=== PATIENT | female | born 1985 | race Caucasian/White ===

== ENCOUNTER 2016-06-26 17:01 | Observation (INO) | payer SELFPAY ==
[~2016-06-26] VITALS: Ht 444.5 cm; Wt 70.8 kg
== END 2016-07-02 17:30 | disposition home or self-care (01) ==
LOC: L&D 07-02 16:18
PROVIDERS: ADMIT Obstetrics & Gynecology; ATTEND Obstetrics & Gynecology
DX: O26.893 Other specified pregnancy related conditions, third trimester (principal); R00.1 Bradycardia, unspecified; Z3A.39 39 weeks gestation of pregnancy
CPT/HCPCS: 76815; 76818; G0378

== ENCOUNTER 2016-07-12 15:51 | Observation (INO) | payer SELFPAY ==
[~2016-07-12] VITALS: Ht 170.2 cm; Wt 70.8 kg
[2016-07-14] MEDS ORDERED: PREN-88 PO (13:00)
[2016-07-14] MEDS ORDERED: LEVO75TA7 PO (22:46)
== END 2016-07-14 13:05 | disposition home or self-care (01) ==
LOC: EDBD → L&D 07-14 10:28
PROVIDERS: ADMIT Obstetrics & Gynecology; ATTEND Obstetrics & Gynecology
DX: O62.9 Abnormality of forces of labor, unspecified (principal); O48.0 Post-term pregnancy; Z3A.40 40 weeks gestation of pregnancy
CPT/HCPCS: 76815; 76818; G0378; J7120

== ENCOUNTER 2016-07-14 21:36 | Inpatient (IN) | payer SELFPAY ==
[~2016-07-14] VITALS: Ht 175 cm; Wt 70.3 kg
[~2016-07-14 21:36] MED LIST: PREN-88 PO
[2016-07-14] MEDS ORDERED: DEXT 5%/LR + PITOCIN 20UNITS/L 1,000 ML IV SCH (22:39)
[2016-07-14] MEDS ORDERED: METHYLERGONOVINE MALEATE 0.2 MG/ML IM PRN (22:45)
[2016-07-14] MEDS ORDERED: CARBOPROST TROMETHAMINE 250 MCG/ML AMPUL IM PRN (22:45)
[2016-07-14] MEDS ORDERED: BUTORPHANOL TARTRATE 2 MG/ML VIAL IV PRN (22:45)
[2016-07-14] MEDS ORDERED: MISOPROSTOL 100MCG TABLET VG SCH (22:45)
[2016-07-14] MEDS ORDERED: LIDOCAINE HCL 1% 20ML VIAL (Pyxis) INJ INFIL SCH (22:45)
[2016-07-14] MEDS ORDERED: NALOXONE HCL 0.4 MG/ML 1ML VIAL IM PRN (22:45)
[2016-07-14] MEDS ORDERED: LEVO75TA7 PO (22:46)
[2016-07-14] MEDS ORDERED: LACTATED RINGERS 1,000 ML IV SCH (23:00)
[2016-07-14] MEDS ORDERED: AMPICILLIN 2,000 MG in SODIUM CHLORIDE 0.9% 100 ML IV NR (23:15)
[2016-07-15] VITALS (7 sets, daily range): BP systolic 95–115; BP diastolic 62–78
[2016-07-15] LABS: CLARITY URINE CLEAR (CLEAR); COLOR URINE YELLOW (YELLOW); GLUCOSE URINE 2+ (NEGATIVE); KETONES URINE NEGATIVE (NEGATIVE); LEUKOCYTE ESTERASE URINE NEGATIVE (NEGATIVE); NITRITE URINE NEGATIVE (NEGATIVE); OCCULT BLOOD URINE NEGATIVE (NEGATIVE); PROTEIN URINE NEGATIVE (NEGATIVE); SPECIFIC GRAVITY URINE 1.015 (1.005-1.030)
[2016-07-15 00:01] LABS: BACTERIA URINE 2+; CALCIUM PHOSPHATE CRYSTALS UR NONE SEEN /lpf; RBC URINE NONE SEEN /hpf (0-2); SQUAMOUS EPITHELIAL CELL URINE 1+ /lpf (RARE/1+); WAXY CASTS URINE NONE SEEN /lpf; WBC URINE NONE SEEN /hpf (0-2); YEAST URINE NONE SEEN
[2016-07-15 00:07] LABS: BASOPHILS % 0.2 % (0.0-2.0); EOSINOPHILS % 1.5 % (0.0-5.0); HEMATOCRIT. 34.3 % (36.0-48.0); HEMOGLOBIN. 11.7 g/dL (12.0-16.0); MEAN CORPUSCULAR HEMOGLOBIN 28.1 pg (28.0-32.0); MEAN CORPUSCULAR HGB CONC 33.9 g/dL (31.0-37.0); MEAN CORPUSCULAR VOLUME 82.8 fL (81.0-99.0); MONOCYTES % 8.5 % (2.0-8.0); NEUTROPHILS % 64.8 % (40.0-76.0); PLATELET 216 x1000/uL (130-400); RED BLOOD CELL COUNT 4.15 mill/uL (4.2-5.4); RED CELL DISTRIBUTION WIDTH 15.9 % (11.6-14.6); WHITE BLOOD COUNT 8.2 x1000/uL (4.5-11.0)
[2016-07-15 00:10] LABS: PARTIAL THROMBOPLASTIN TIME 28.7 sec (24.0-34.0); PROTHROMBIN TIME 10.5 sec
[2016-07-15 00:20] LABS: *AMPHETAMINES SCREEN URINE NEGATIVE (NEGATIVE); *BARBITURATES SCREEN URINE NEGATIVE (NEGATIVE); *BENZODIAZEPINES SCREEN URINE NEGATIVE (NEGATIVE); *COCAINE SCREEN URINE NEGATIVE (NEGATIVE); CANNABINOID URINE SCREEN NEGATIVE (NEGATIVE); ECSTASY MDMA SCREEN URINE NEGATIVE (NEGATIVE); METHADONE URINE SCREEN NEGATIVE (NEGATIVE); OPIATES URINE SCREEN NEGATIVE (NEGATIVE); PHENCYCLIDINE URINE SCREEN NEGATIVE (NEGATIVE)
[2016-07-15 01:17] LABS: ALANINE AMINOTRANSFERASE 15 IU/L (13-61); ALBUMIN 2.6 g/dL (3.4-5.0); ANION GAP 15; CALCIUM 8.6 mg/dL (8.5-10.1); CARBON DIOXIDE 22 mEq/L (21-32); CHLORIDE 109 mEq/L (98-107); INDEX HEMOLYSI 1 (1-3); INDEX ICTERIC 1 (1-4); INDEX LIPEMIC 1 (1-3); UREA NITROGEN BLOOD 8 mg/dL (7-21); eGFR > 60 mL/min (>60)
[2016-07-15] MEDS ORDERED: DEXT 5%/LR + PITOCIN 20UNITS/L 1,000 ML IV SCH (03:27)
[2016-07-15] MEDS ORDERED: IBUPROFEN 800MG TABLET PO PRN (03:30)
[2016-07-15] MEDS ORDERED: RHO(D) IMMUNE GLOBULIN 300 MCG/SYR IM PRN (03:30)
[2016-07-15] MEDS ORDERED: BENZOCAINE/LANOLIN/ALOE VERA SPRAY TOP PRN (03:30)
[2016-07-15] MEDS ORDERED: ACETAMINOPHEN WITH CODEINE 300/30MG TABLET PO PRN (03:30)
[2016-07-15] MEDS ORDERED: IBUPROFEN 400MG TABLET PO PRN (03:30)
[2016-07-15 04:17] LABS: HEPATITIS B SURFACE ANTIGEN NEGATIVE
[2016-07-15] MEDS ORDERED: AMPICILLIN 1,000 MG in SODIUM CHLORIDE 0.9% 50 ML IV SCH (05:00)
[2016-07-15 07:21] LABS: BASOPHILS % 0.3 % (0.0-2.0); EOSINOPHILS % 0.4 % (0.0-5.0); HEMATOCRIT. 32.7 % (36.0-48.0); LYMPHOCYTES % 11.7 % (20.0-50.0); MEAN CORPUSCULAR HEMOGLOBIN 27.9 pg (28.0-32.0); MEAN CORPUSCULAR HGB CONC 33.6 g/dL (31.0-37.0); MEAN CORPUSCULAR VOLUME 83.1 fL (81.0-99.0); MEAN PLATELET VOLUME 7.8 fl (7.4-10.4); MONOCYTES % 5.3 % (2.0-8.0); NEUTROPHILS % 82.3 % (40.0-76.0); PLATELET 212 x1000/uL (130-400); RED BLOOD CELL COUNT 3.93 mill/uL (4.2-5.4); RED CELL DISTRIBUTION WIDTH 15.9 % (11.6-14.6); WHITE BLOOD COUNT 13.5 x1000/uL (4.5-11.0)
[2016-07-15 07:25] LABS: RUBELLA IGG < 0.2 IU/mL (4.99-10)
[2016-07-15] MEDS: LEVOTHYROXINE SODIUM 75MCG TABLET PO SCH (08:03)
[2016-07-16] MEDS: LEVOTHYROXINE SODIUM 75MCG TABLET PO SCH (07:00)
[2016-07-16 08:44] VITALS: BP 105/72
== END 2016-07-16 11:30 | disposition home or self-care (01) | DRG 560 ==
LOC: L&D 22:27 → OBSVTOIN 22:27 → 7EST PP/OB 07-15 06:27
PROVIDERS: ADMIT Obstetrics & Gynecology; ATTEND Obstetrics & Gynecology
PROC: 0HQ9XZZ Repair Perineum Skin, External Approach (ICD-10-PCS; 2016-07-14)
PROC: 10E0XZZ Delivery of Products of Conception, External Approach (ICD-10-PCS; principal; 2016-07-14 04:00)
DX: O76 Abnormality in fetal heart rate and rhythm complicating labor and delivery (principal); E03.9 Hypothyroidism, unspecified; O99.284 Endocrine, nutritional and metabolic diseases complicating childbirth; O99.824 Streptococcus B carrier state complicating childbirth; O70.0 First degree perineal laceration during delivery; O99.02 Anemia complicating childbirth; D64.9 Anemia, unspecified; O69.81X0 Labor and delivery complicated by cord around neck, without compression, not applicable or unspecified; Z37.0 Single live birth; Z3A.41 41 weeks gestation of pregnancy
CPT/HCPCS: 36415; 80053; 80305; 81001; 81003; 85025; 85610; 85730; 86592; 86703; 86762; 86850; 86870; 86900; 87340; J0290; J2590; J3490; J7050; J7120